=== PATIENT | female | born 1995 | race Caucasian/White ===

== ENCOUNTER 2019-09-17 10:48 | Emergency (ER) | payer BC, SELFPAY ==
[2019-09-17] VITALS (7 sets, daily range): BP systolic 92–127; BP diastolic 61–92; PULSE 99–150; RESP 20; TEMP 36.4–36.8; O2SAT 98–100
--- NOTE | ~2019-09-17 | XR_ITS ---
EXAMINATION: XR chest 1V portable DATE: 09/17/2019 11:06 INDICATION: Syncope. Hypotension. TECHNIQUE: frontal view of the chest was obtained. COMPARISON: None FINDINGS: The lungs are clear with no focal airspace opacities, pulmonary edema, pleural effusion or pneumothor ax. The cardiomediastinal silhouette is normal. Visualized bones and soft tissues are unremarkable. IMPRESSION: 1. No acute cardiopulmonary disease. Reviewed, dictated and finalized at location A. H MACHINE OPERATOR
--- NOTE | 2019-09-17 10:57 | ECG_ITS ---
Measurements Intervals [place] Rate: 139 P: 56 RI: 144 QRS: 89 QRSD: 87 T: 36 QT: 286 QTc: 436 Interpretive Statements SINUS TACHYCARDIA BORDERLINE ST ABNORMALITY- INFERIOR LEADS BASELINE ARTIFACT- I, II, III, AVR, V1, V3 ABNORMAL ECG Electronically Signed On 09-17-2019 12:46:11 SENIOR EXECUTIVE ASSISTANT by Ramirez Wyatt D.O.
[2019-09-17 11:06] LABS: Basophils Absolute Auto 0.1 K/mm3 (0.0-0.1); Basophils Percent Auto 0.3 % (0.2-1.2); Eosinophils Absolute Auto 0.2 K/mm3 (0-0.3); Eosinophils Percent Auto 1.3 % (0-4.4); Hematocrit 37.6 % (37.0-47.0); Hemoglobin 12.3 g/dL (12.0-15.0); Immature Granulocyte Absolute 0.33 K/mm3 (0.00-0.031); Immature Granulocyte Percent A 2.2 % (0-0.5); Lymphocytes Absolute Auto 3.25 K/mm3 (0.9-3.2); Lymphocytes Percent Auto 21.2 % (18.3-44.2); Mean Corpuscular HGB Conc 32.7 g/dl (32-36); Mean Corpuscular Hemoglobin 28.5 pg (26-34); Mean Corpuscular Volume 87.2 fl (80-100); Mean Platelet Volume 9.5 fl (7.4-10.4); Monocytes Absolute Auto 1.3 K/mm3 (0.1-0.6); Monocytes Percent Auto 8.5 % (2.6-8.5); Neutrophils Absolute Auto 10.2 K/mm3 (1.3-6.7); Neutrophils Percent Auto 66.5 % (45.5-73.1); Platelet Count Result 292 k/mm3 (150-375); Red Blood Count 4.31 M/mm3 (4.2-5.4); Red Cell Distribution Width 13.9 % (11.5-14.5); White Blood Count 15.3 K/mm3 (4.5-10.0)
[2019-09-17 11:16] LABS: INR 0.9; Prothrombin Time 12.1 Seconds (11.1-14.7)
[2019-09-17 11:17] LABS: Partial Thromboplastin Time 24.7 SECONDS (22.3-36.8)
[2019-09-17 11:21] LABS: Alanine Aminotransferase 15 U/L (4-35); Alkaline Phosphatase 108 U/L (38-126); Aspartate Amino Transferase 18 U/L (14-36); Bilirubin,Total 0.2 mg/dL (0.2-1.3); Blood Urea Nitrogen 4 mg/dL (7-17); Calcium 9.5 mg/dL (8.4-10.2); Carbon Dioxide 23 mmol/L (22-30); Chloride 101 mmol/L (98-107); Estimated CRCL calculation 161 ml/min; Estimated Glomerular Filt Rate > 60; Glucose 95 mg/dL (65-105); Potassium 3.4 mmol/L (3.4-5.0); Sodium 136 mmol/L (137-145)
[2019-09-17 11:32] LABS: Troponin I < 0.012 ng/mL (0.000-0.034)
--- NOTE | 2019-09-17 11:40 | ED.DIZZY ---
HPI - Dizziness General Chief Complaint: Syncope Stated Complaint: 26 weeks /dizzy Time Seen by Provider: 09/17/19 11:40 Source: patient Mode of arrival: ambulatory Limitations: no limitations History of Present Illness HPI Narrative: A 23 y/o female, who is a P:0 and 26 weeks , presents to the ED after a near syncopal episode this morning. Pt states that she was at [employer] when she suddenly felt lightheaded and everything suddenly went white and I thought I was going to faint. Pt had been standing for about 15 minutes when this occurred. Pt denies syncope stating that her symptoms alleviated after she sat down. This episode lasted approximately 1-2 minutes. Pt does not have a history of similar symptoms in the past. Pt currently asymptomatic in the ED bed. She reports resolved SOB, but denies vaginal bleeding, vaginal discharge, ABD pain, dysuria, urinary frequency, CP, smoking, alcohol use, and a PMHx of anxiety or panic attacks. Pt's OBGYN is Dr. Kincaid. Pertinent past history: other (26 weeks ) Onset (ago): hour(s) Timing: sudden onset Relieving factors: other (sitting down) Related Data Home Medications Medication Instructions Recorded Confirmed No Home Medications 09/17/19 09/17/19 Allergies Allergy/AdvReac Type Severity Reaction Status Date / Time No Known Allergies Allergy Verified 09/17/19 11:20 Review of Systems Review of Systems: All systems reviewed & are unremarkable except as noted in HPI and below Constitutional: Comments: Reports: lightheadedness (resolved) Cardiovascular: Cardiovascular: Denies chest pain Respiratory: Respiratory: Reports dyspnea (resolved) Gastrointestinal: Gastrointestinal: Denies abdominal pain Genitourinary: Genitourinary: Denies abnormal vaginal bleeding, Denies nocturia, Denies dysuria and Denies vaginal discharge Neurologic: Denies syncope PMFSH Past Medical History Medical History (Updated 09/17/19 @ 13:08 by Giuliano Edmond MD) 26 weeks gestation of Social History Social History (Updated 09/17/19 @ 11:54 by Maria Eugenia Gleason) Smoking status: Never smoker Alcohol intake: never Gender identity (if verbalized by the patient): Female Comments No PCP on file. OBGYN: Dr. Kincaid Exam Narrative: Exam Narrative: General appearance: Well-developed, well-nourished Skin: Normal color Head: Normocephalic, nontraumatic Eyes: Clear conjunctiva ENT: Oropharynx normal, ears normal, nose normal Neck: Supple, nontender Chest and respiratory: Airway patent, no respiratory distress, no accessory muscle use Heart: Regular rate/rhythm Abdomen: Soft, nontender, no organomegaly, quiet bowel sounds Vascular: Normal peripheral pulses, normal capillary refill. Musculoskeletal: Normal range of motion, nontender back Neurologic: Alert and oriented ?3, [employer] is normal as tested, no gross motor deficit Course Course Emergency Course: Improving Consultations Consultation #1: Discussed case with Dr. Kincaid and recommended cardiology consult. Date: 09/17/19 Time: 12:49 Consultation #2: Discussed case with Dr. Wyatt and he reports the EKG showing sinus tachycardia, not A-flutter. Date: 09/17/19 Time: 12:56 Vital Signs Vital signs: Vital Signs Temperature 36.4 C L 09/17/19 10:56 Pulse Rate 132 H 09/17/19 10:56 Respiratory Rate 20 09/17/19 10:56 Blood Pressure 92/61 L 09/17/19 10:56 Pulse Oximetry 99 09/17/19 10:56 Temperature 36.4 C L 09/17/19 10:56 Pulse Rate 117 H 09/17/19 12:31 Respiratory Rate 20 09/17/19 12:31 Blood Pressure 125/80 09/17/19 12:31 Pulse Oximetry 100 09/17/19 12:31 MDM - Dizziness MDM Narrative Medical
[2019-09-17 11:46] LABS: Add Urine Microscopic? NO; Appearance Urine Clear (Clear); Bilirubin Urine Negative (Negative); Blood Urine Negative (Negative); Color Urine Straw (Yellow); Glucose Urine UA Negative (Negative); Ketones Urine Negative (Negative); Leukocyte Esterase Ur Negative LEU/UL (Negative); Nitrate Urine Negative (Negative); Protein Urine Negative (Negative); Specific Grav Ur 1.009 (1.001-1.035); Urobilinogen Urine Negative mg/dL (<2.0)
[2019-09-17] MEDS: SODIUM CHLORIDE 0.9% IV 500 ML 999 ML IV CONT (12:01)
[2019-09-17 12:13] LABS: D Dimer 0.27 ug/mL (<0.48)
[2019-09-17 12:18] LABS: Amphetamine Screen Urine Negative (Negative); Barbiturate Screen Urine Negative (Negative); Benzodiazepines Screen Urine Negative (Negative); Cannabinoid Screen Urine Negative (Negative); Cocaine Screen Urine Negative (Negative); Methadone Screen Urine Negative (Negative); Opiate Screen Urine Negative (Negative); Phencyclidine Screen Urine Negative (Negative)
[2019-09-17] MEDS: SODIUM CHLORIDE 0.9% IV 1,000 ML 999 ML IV CONT (13:10)
== END 2019-09-17 14:25 | disposition home or self-care (01) ==
PROVIDERS: Emergency Medicine Emergency Medical Services; Emergency Provider Emergency Medicine
DX: O26.892 Other specified pregnancy related conditions, second trimester (principal); R55 Syncope and collapse; R00.0 Tachycardia, unspecified; Z3A.26 26 weeks gestation of pregnancy
CPT/HCPCS: 36415; 71045; 80053; 80307; 81003; 84443; 84484; 85025; 85380; 85610; 85730; 87804; 93005; 96360; 96361; 99284; J7030; J7040

== ENCOUNTER 2019-09-29 09:41 | Outpatient (RCR) | payer BC, SELFPAY ==
[2019-09-29 11:46] LABS: Hemoglobin 11.1 g/dL (12.0-15.0); Mean Corpuscular HGB Conc 32.6 g/dl (32-36); Mean Corpuscular Hemoglobin 28.6 pg (26-34); Mean Corpuscular Volume 87.6 fl (80-100); Mean Platelet Volume 9.9 fl (7.4-10.4); Platelet Count Result 275 k/mm3 (150-375); Red Blood Count 3.88 M/mm3 (4.2-5.4); White Blood Count 16.1 K/mm3 (4.5-10.0)
[2019-09-29 11:58] LABS: Glucose 1 Hour PP 50gm Dose 107 mg/dL
[2019-09-29 12:39] LABS: HIV 1/2 Ab P24 Ag Result Negative (Negative)
[2019-10-02] MEDS: RHO(D) IMMUNE GLOBULIN 300 MCG SYRINGE IM (11:23)
== END 2019-12-28 23:59 | disposition home or self-care (01) ==
LOC: ANHLAB 09:41
PROVIDERS: Visit Provider Obstetrics & Gynecology
DX: Z36.89 Encounter for other specified antenatal screening (principal); Z29.13 Encounter for prophylactic Rho(D) immune globulin; O36.0920 Maternal care for other rhesus isoimmunization, second trimester, not applicable or unspecified; Z3A.00 Weeks of gestation of pregnancy not specified
CPT/HCPCS: 36415; 82947; 85027; 86703; 86900; 86901; 90384; 96372; G0432; J2790

== ENCOUNTER 2019-12-05 05:17 | Inpatient (IN) | payer BC, SELFPAY ==
[2019-12-05] VITALS (137 sets, daily range): BP systolic 100–168; BP diastolic 43–141; PULSE 29–133; RESP 16; TEMP 36.3–36.7; O2SAT 83–100; BMI 39.0
--- NOTE | 2019-12-05 05:40 | LDADM ---
This patient, Brielle Haley, was admitted to Labor/Delivery/Recovery 102 on 12/05/19 at 05:17. Plans for labor, pain management and were discussed with patient. Patient/family oriented to hospital policies and general routines including ID bracelet, bed and alarms, visiting hours, pain management, procedures, bathroom and other care routines, personal items, smoking policy, room service/diet and guest tray routines, security routines, and visiting hours. Patient/Family are encouraged to report perceived risks to care and to ask questions if they do not understand what they are told or what they should do. See OBIX for further documentation.
[2019-12-05] MEDS: LACTATED RINGERS 1,000 ML 125 ML IV CONT ×4 (06:53→15:53)
[2019-12-05] MEDS: AMPICILLIN 2 GM/NS 100 ML 2 GM/100 ML BAG IVPB (06:53)
[2019-12-05 06:57] LABS: Basophils Absolute Auto 0.1 K/mm3 (0.0-0.1); Basophils Percent Auto 0.4 % (0.2-1.2); Eosinophils Absolute Auto 0.2 K/mm3 (0-0.3); Eosinophils Percent Auto 1.8 % (0-4.4); Hematocrit 38.3 % (37.0-47.0); Hemoglobin 12.9 g/dL (12.0-15.0); Immature Granulocyte Absolute 0.14 K/mm3 (0.00-0.031); Immature Granulocyte Percent A 1.2 % (0-0.5); Lymphocytes Percent Auto 33.6 % (18.3-44.2); Mean Corpuscular HGB Conc 33.7 g/dl (32-36); Mean Corpuscular Hemoglobin 29.4 pg (26-34); Mean Corpuscular Volume 87.2 fl (80-100); Mean Platelet Volume 11.2 fl (7.4-10.4); Monocytes Percent Auto 8.2 % (2.6-8.5); Neutrophils Absolute Auto 6.5 K/mm3 (1.3-6.7); Neutrophils Percent Auto 54.8 % (45.5-73.1); Platelet Count Result 229 k/mm3 (150-375); Red Blood Count 4.39 M/mm3 (4.2-5.4); Red Cell Distribution Width 15.2 % (11.5-14.5); White Blood Count 11.9 K/mm3 (4.5-10.0)
--- NOTE | 2019-12-05 07:43 | PM.IMHP ---
H&P: HPI History of Present Illness Chief complaint: Leaking Narrative: Brielle Haley is a 24yo @ 37.5 wks who presented to L&D with SROM @ 0415 today. She reports mild cramping as well. She was found to be 2cm dilated and ruptured, clear. She was also found to have elevated BP's (multiple mild range BP's and 1 severe range at 0545). She denies HERNANDEZ, CP, SOB, or vision changes. Review of Systems Constitutional: Constitutional: Denies body ache(s) and Denies chills Eyes: Eyes: Denies blurry vision Cardiovascular: Cardiovascular: Denies chest pain and Denies palpitations Respiratory: Respiratory: Denies cough and Denies dyspnea on exertion Gastrointestinal: Gastrointestinal: Denies nausea and Denies vomiting Genitourinary: Comments: + leakage of fluid, + cramping Neurologic: Denies headache(s) [facility] Past Medical History Medical History 26 weeks gestation of Family History Family History Other Unknown family medical history Social History Social History Smoking status: Never smoker Second hand tobacco smoke exposure: No Alcohol intake: never Substance use: never Gender identity (if verbalized by the patient): Female Spiritual care concerns: No Meds Home Medications and Allergies Home Medications Medication Instructions Recorded Confirmed Type PNV cmb#95-ferrous fumarate-FA 1 tablet PO DAILY 11/25/19 11/25/19 History [] Allergies Allergy/AdvReac Type Severity Reaction Status Date / Time No Known Allergies Allergy Verified 11/25/19 15:37 Vital Signs Vital Signs - 24 hr 12/05/19 05:33 12/05/19 05:45 12/05/19 06:09 Temperature 36.5 C Pulse Rate 110 H 89 Blood Pressure 143/98 H 160/114 H 12/05/19 06:12 12/05/19 06:15 12/05/19 06:17 Temperature Pulse Rate 89 87 87 Blood Pressure 119/86 133/111 H 128/79 12/05/19 06:30 12/05/19 06:36 12/05/19 06:38 Temperature Pulse Rate 86 103 H 73 Blood Pressure 133/103 H 140/101 H 148/96 H 12/05/19 06:45 12/05/19 06:51 12/05/19 07:00 Temperature 36.7 C Pulse Rate 85 92 Blood Pressure 150/94 H 145/95 H 12/05/19 07:01 12/05/19 07:15 12/05/19 07:30 Temperature Pulse Rate 91 77 77 Blood Pressure 124/95 H 128/87 142/94 H Exam Const: General: comfortable and no acute distress Resp: Effort & Inspection: normal respiratory effort Cardio: Rate: regular rate : Other: FHT's: 135/mod tri/ + accels/ no decels - category 1 TOCO: ctx's q 2-6min Cervix: 2/70/-3 @ 0530 Membranes: SROM, clear 0415 Neuro: Speech: normal speech Psych: Affect: normal affect H&P: Results Labs Labs: Short CBC 12/05/19 Range/Units 06:03 WBC 11.9 H (4.5-10.0) K/mm3 Hgb 12.9 (12.0-15.0) g/dL Hct 38.3 (37.0-47.0) % Plt Count 229 (150-375) k/mm3 Assessment and Plan Assessment and plan (1) SROM (spontaneous rupture of membranes): Status: Acute (2) Elevated blood pressure affecting , antepartum: Code(s): O16.9 - Unspecified maternal hypertension, unspecified trimester Status: Acute Additional Plan - Admit to labor and delivery for augmentation following SROM - Will allow pt to contract on her own for 4 hours; if no cervical change noted, will start pitocin augmentation per protocol - Ampicillin for GBS + - Will send PEC labs and continue to monitor BP's closely; currently asymptomatic and in the mild range (does not meet criteria for diagnosis yet as she has been normotensive prior to this). - heart tones category 1, continuous monitoring - Anesthesia consult PRN pain.
[2019-12-05] MEDS: OXYTOCIN 30 UNITS/NS 500 ML 30 UNITS/500 ML BAG 6 UNITS IV CONT (08:15)
[2019-12-05 08:55] LABS: Alanine Aminotransferase 14 U/L (4-35); Albumin Level 3.3 g/dL (3.5-5.1); Alkaline Phosphatase 214 U/L (38-126); Aspartate Amino Transferase 21 U/L (14-36); Bilirubin,Total 0.1 mg/dL (0.2-1.3); Blood Urea Nitrogen 9 mg/dL (7-17); Calcium 8.9 mg/dL (8.4-10.2); Carbon Dioxide 24 mmol/L (22-30); Chloride 104 mmol/L (98-107); Estimated CRCL calculation 122 ml/min; Estimated Glomerular Filt Rate > 60; Glucose 78 mg/dL (65-105); Potassium 4.3 mmol/L (3.4-5.0); Sodium 133 mmol/L (137-145)
[2019-12-05] MEDS: AMPICILLIN 1 GM/NS 50 ML 1 GM/50 ML BAG IVPB ×2 (11:08→15:54)
[2019-12-05] MEDS: SODIUM CHLORIDE 0.9% IV 300 ML 600 ML I-UTERINE (13:44)
[2019-12-05 14:06] LABS: Creatinine Urine 162.3 mg/dL
[2019-12-05 14:19] LABS: Total Protein Urine Random > 600 mg/dL
--- NOTE | 2019-12-05 16:52 | P.PCNOB_ITS ---
OB - Delivery Note Procedure Delivery date: 12/05/19 Procedure: Patient progressed to complete dilation and had a strong desire to push. She pushed with good maternal effort and delivered the head over intact perineum. A nuchal cord was palpated but loose, and easily delivered through. The shoulders and body delivered without complications. The was immediately placed skin to skin on mom. The infant had spontaneous cry and the mouth and nose were bulb suctioned. The cord was then clamped and cut. A segment of the cord was collected for cord gases. The remaining cord blood was then collected for typing. With Pitocin running and gentle traction on th e cord, the placenta delivered without complications. A bimanual exam was performed and the uterus found to be firm with minimal bleeding. The the cervix, vagina, and perineum were examined and a first-degree vaginal laceration was noted. The laceration was repaired using 2 0 Vicryl in the normal fashion and good hemostasis was noted. Sponge, lap, needle, and instrument counts were correct at the end of the procedure. Mom and baby were left bonding and skin to skin in the birthing suite in a stable condition. events: Premature Rupture of Membrane Intrapartal events: Mild Preeclampsia (Gestational hypertension) Delivery augmentation: pitocin Delivery monitor: external FHT and internal uterine Route of delivery: Laceration description: Vaginal - 1st Degree Delivery repair: vicryl Estimated blood loss (mL): 100 Anesthesia type: Epidural Disposition: floor [place] Baby Date of : 12/05/19 Time of : 16:25 Weeks of gestation at delivery: 37 Infant gender: Female Weight (pounds): 6 Weight (ounces): 0 presentation: vertex position: Right Occiput Anterior Placenta delivery description: Expressed cord vessel description: 3 Vessels and Nuchal Cord score one minute: 9 score five minutes: 9
[2019-12-05] MEDS: OXYTOCIN 30 UNITS/NS 500 ML 30 UNITS/500 ML BAG 125 UNITS IV CONT (17:00)
[2019-12-05] MEDS: BENZOCAINE 20% AER SPR (*SP) 56 GM CAN 1 SPRAY TOPICAL (18:15)
[2019-12-05] MEDS: WITCH HAZEL 40 PADS 1 PAD TOPICAL (18:15)
--- NOTE | 2019-12-05 18:46 | OBPPTRN ---
Patient transferred to post room #291 via wheelchair. Support person present. Oriented to unit, room, information board, rooming in, admission packet and security measures. Patient verbalizes understanding.
[2019-12-05] MEDS: NIFEdipine 30 MG TAB.ER.24 PO (20:59)
[2019-12-05] MEDS: ACETAMINOPHEN 325 MG TABLET 650 MG PO (21:07)
[2019-12-05] MEDS: CALCIUM CARBONATE (TUMS) 500 MG (200 MG ELEMENTAL) PO (23:15)
[2019-12-06] VITALS (7 sets, daily range): BP systolic 121–139; BP diastolic 83–102; PULSE 87–104; RESP 16–18; TEMP 36.6–37.2; O2SAT 97–99
[2019-12-06 05:24] LABS: Hematocrit 35.3 % (37.0-47.0); Hemoglobin 11.7 g/dL (12.0-15.0)
[2019-12-06] MEDS: MULTIVIT/MIN/PREN/FOL AC/IRON TABLET 1 TAB PO (08:40)
[2019-12-06] MEDS: DOCUSATE SODIUM 100 MG CAPSULE PO (08:40)
[2019-12-06] MEDS: LANOLIN (LANSINOH) 7.5 GM CREAM 1 APPLIC TOPICAL (08:41)
[2019-12-06 09:29] LABS: Rapid Plasma Reagin Non-Reactive (NonReactive)
--- NOTE | 2019-12-06 12:35 | PC.NURSE ---
Mother called out for assist feeding. Mother reports using the nipple shield. has been sleepy and has bursts of sporadic suckling. Mother will supplement after due to ineffective feeding. Mother is pumping after using the nipple shield. first child with complications of latch and low milk supply. Discussed nipple shield precautions and possible complications. Instructions given on application and cleaning of shield.Patient able to return demonstration on proper application of shield. Discussed the need for regular pumping if infant continues to nurse with the shield. Patient verbalizes understanding. Reviewed feeding cues, frequencies, duration of feedings, feeding elimination flow sheet, and signs of adequate intake. Demonstrated stimulation techniques to wake for feeding. Assisted with infant to breast. Reviewed positioning/alignment in football, holding breast in C hold and guided asymmetrical latch on. Discussed rational for each. Infant was able to latch correctly, infant made no effort to suckle. Suggested small amounts of formula to shield and mouth to begin feeding. responded with eager nursing, with steady draws and occasional swallowing noted. Reviewed signs of a correct latch, effective nursing and suck swallow ratio. was able to maintain latch without discomfort to mother. Nipple care reviewed. Suggested mother continue to stimulate during feeding to increase intake and assist infant with maintaining deep latch. Mother will continue to offer supplement after feedings until is more consistent with feeding. Instructed mother to call out for RN assistance if she is unable to latch infant for feeding or she has discomfort with nursing. Instructed feeding should be initiated three hours from start of last feeding or if feeding cues are noted before. Mother voiced understanding of information shared.
--- NOTE | 2019-12-06 12:54 | PM.OBPNVD ---
OB - PN: Subj Subjective Date/time seen: 12/06/19 12:54 Brielle is a 24yo now P1001 s/p @ 37.5wks, PPD#1 complicated by PEC w/o SF, RH negative, varicella non-immune, GBS positive Today, Brielle reports doing great; breast feeding has been difficult. She had persistently elevated blood pressures overnight and was started on antihypertensives; her BP's have been normal today. She denies any symptoms of PEC. She reports her pain is well controlled and she is having very light bleeding. She has been up walking and denies symptoms of anemia. She is tolerating regular diet w/o issues. She is voiding and passing flatus. No other complaints. OB - PN: Obj Data Labs CBC & Chem 7: 12/06/19 04:28 12/05/19 08:15 Labs: Laboratory Results - last 24 hr 12/05/19 12/05/19 12/06/19 06:03 13:49 04:28 Hgb 11.7 L Hct 35.3 L U Random Total Protein > 600 Urine Creatinine 162.3 RPR Non-reactive Blood Type Antibody Screen Screen Baby's Blood Type Baby's LINA Doses of RhIg Required 12/06/19 04:28 Hgb Hct U Random Total Protein Urine Creatinine RPR Blood Type B Negative Antibody Screen Negative Screen Negative Baby's Blood Type Ab pos Baby's LINA Negative Doses of RhIg Required 1 OB - PN A/P Assessment and Plan (1) Normal vaginal delivery: Code(s): O80 - Encounter for full-term uncomplicated delivery Status: Acute (2) Preeclampsia in period: Code(s): O14.95 - Unspecified pre-eclampsia, complicating the puerperium Status: Acute Assessment and Plan: without severe features; based on mild range BP's and + P/C ratio (3) Rh negative, delivered, current hospitalization: Code(s): O26.899 - Other specified related conditions, unspecified trimester; Z67.91 - Unspecified blood type, Rh negative Status: Acute Plan day: 1 Comments: - Meeting all milestones - Continue breast feeding; /nursing helping - BP's in normal range now; continue Nifedipine 30mg PO daily, pt asymptomatic-- will need 1wk BP f/u outpatient - Labs and exam normal - Rh negative; administer rhogam pending blood type - Will likely d/c home tomorrow Time Spent With Patient Time: Total time spent is greater than 50% in coordination of care (as documented) at patient's floor/unit and/or counseling patient: Review of Systems Constitutional: Constitutional: Denies body ache(s) and Denies chills Cardiovascular: Cardiovascular: Denies rapid heart rate Respiratory: Respiratory: Denies cough and Denies dyspnea Gastrointestinal: Gastrointestinal: Denies abdominal pain, Denies nausea and Denies vomiting Genitourinary: Genitourinary: Denies pelvic pain Neurologic: Denies headache(s) Exam Const: General: comfortable, no acute distress, alert and awake Resp: Effort & Inspection: normal respiratory effort Auscultation: clear to auscultation bilaterally Cardio: Rate: regular rate GI: Auscultation: normal bowel sounds Other: soft, non-distended, non-tender : Other: fundus firm below umbilicus Psych: Appearance: grossly normal Affect: normal affect Attitude: cooperative
[2019-12-06] MEDS: NIFEdipine 30 MG TAB.ER.24 PO (13:00)
[2019-12-06] MEDS: IBUPROFEN 600 MG TABLET PO ×2 (13:26→22:45)
--- NOTE | 2019-12-06 15:22 | PC.NURSE ---
1300 Pt prefers to take her BP medication around noon each day. Dr. merino, and agreed. BP med given at this time.
[2019-12-06] MEDS: RHO(D) IMMUNE GLOBULIN 300 MCG SYRINGE IM (17:59)
[2019-12-07 04:00] VITALS: BP 136/93; PULSE 90
[2019-12-07 07:45] VITALS: BP 147/104; PULSE 95; RESP 16; TEMP 37.7; O2SAT 98
[2019-12-07] MEDS: MULTIVIT/MIN/PREN/FOL AC/IRON TABLET 1 TAB PO (08:26)
[2019-12-07] MEDS: NIFEdipine 30 MG TAB.ER.24 PO ×2 (10:51→12:42)
--- NOTE | 2019-12-07 11:44 | PC.NURSE ---
Patient viewed the discharge video Mother & Baby Care, The First Two Weeks . Patient was given the opportunity and encouraged to ask questions. Patient verbalized understanding of information shared and has been given the mother/baby guide for home reference.
[2019-12-07 12:20] VITALS: BP 156/107; PULSE 99
[2019-12-07 14:30] VITALS: BP 139/98; PULSE 102; RESP 18; TEMP 36.8; O2SAT 99
[2019-12-08 08:41] VITALS: BP 145/96; PULSE 90; RESP 20; TEMP 36.9
--- NOTE | 2019-12-20 08:19 | PM.OBDSVD ---
DS: Admitting Diagnosis Admitting Diagnosis Admitting Diagnosis: Encounter for supervision of normal , unspecified, third trimester DS: Discharge Diagnosis Discharge Diagnosis (1) Normal vaginal delivery: Code(s): O80 - Encounter for full-term uncomplicated delivery Status: Acute (2) Preeclampsia in period: Code(s): O14.95 - Unspecified pre-eclampsia, complicating the puerperium Status: Acute (3) Rh negative, delivered, current hospitalization: Code(s): O26.899 - Other specified related conditions, unspecified trimester; Z67.91 - Unspecified blood type, Rh negative Status: Acute OB - DS: Summary OB Procedures : None OB Procedures Intrapartum: Spontaneous Vag Delivery OB Procedures: : RHo (D) lg and Other (hypertensive medications) Peripartum Data Delivery Method: Natural Vaginal Laceration description: Vaginal - 1st Degree complications: other (pre-eclampsia) [place] 1: Gender: Female Disposition of : home Status at Discharge Functional status at discharge: independent ambulation Overall status at discharge: patient is back to baseline Time Spent with Patient Time attestation: Total time spent providing and/or coordinating discharge services: Exam Const: General: comfortable and no acute distress Resp: Effort & Inspection: normal respiratory effort Auscultation: clear to auscultation bilaterally Cardio: Rate: regular rate GI: GI Palp: Yes Soft to palpation : Other: fundus firm below the umbilicus Psych: Appearance: grossly normal Attitude: cooperative Discharge Plan Discharge Attending physician on discharge: Tsering Kincaid Discharging Clinician: Tsering Kincaid Anticipated Discharge Date/Time: 12/07/19 16:00 Patient Disposition: Home, Self-Care Activity: pelvic rest Diet: regular Discharge Instructions: Education: Mom and Baby Guide and Preeclampsia Handout Given to: Mother Follow-Up: Call your delivering provider's office for an appointment to be seen in: 1 Week Mom and baby should come to the [facility] for the follow-up appointment. Appointment Date/Time: December 08, 2019 at 8:00 am What to expect at your follow-up visit: Blood Pressure Check, Physical Assessment Call [phone] if you are unable to keep your appointment time. BREAST CARE: 1. Wear a snug supportive bra. 2. For engorgement discomfort: Breast Feeding: A. Apply warm moist washcloths B. Express milk as needed to relieve engorgement C. Wear loose clothing 3. For sore nipples: A. Identify correct latch-on B. Apply warm moist washcloths before and after nursing C. Air dry nipples after nursing D. May apply Lansinoh cream to nipples EPISIOTOMY/PERINEAL CARE: 1. Until bleeding stops, use your maykel bottle after urinating 2. Change your pad frequently throughout the day 3. You may take sitz baths several times a day (fill your bathtub with warm water and soak for 20 minutes.) Do NOT bathe in the water 4. No tub baths until seen by your physician - You may shower ACTIVITY: 1. Rest as much as possible. 2. Do not exercise or lift anything heavier than your baby (such as laundry or other children.) 3. Avoid stairs or driving as much as possible. 4. Do not put anything into the vagina. No douching, tampons, or sexual activity until seen by physician. NOTIFY PHYSICIAN IF YOU HAVE ANY QUESTIONS OR IF ANY OF THE FOLLOWING SYMPTOMS OCCUR: 1. If your episiotomy/perineum becomes red, swollen, or more painful than what you have experienced in the hospital. 2. If your vaginal bleeding becomes foul smelling. 3. If your vaginal bleeding becomes more heavy than a period or if your bleeding changes from pink to bright red. However, you may pass an occasional walnut-sized clot once or twice for the first wee
== END 2019-12-07 16:10 | disposition home or self-care (01) | DRG 806 ==
LOC: ANHLDR 05:52 → ANHOB2 18:51
PROVIDERS: Admitting Provider Obstetrics & Gynecology; Visit Provider Obstetrics & Gynecology
DX: O42.92 Full-term premature rupture of membranes, unspecified as to length of time between rupture and onset of labor (principal); O36.0930 Maternal care for other rhesus isoimmunization, third trimester, not applicable or unspecified; Z37.0 Single live birth; Z3A.37 37 weeks gestation of pregnancy; O14.04 Mild to moderate pre-eclampsia, complicating childbirth; O70.0 First degree perineal laceration during delivery; O13.4 Gestational [pregnancy-induced] hypertension without significant proteinuria, complicating childbirth; O69.81X0 Labor and delivery complicated by cord around neck, without compression, not applicable or unspecified; O99.824 Streptococcus B carrier state complicating childbirth; O36.8330 Maternal care for abnormalities of the fetal heart rate or rhythm, third trimester, not applicable or unspecified
CPT/HCPCS: 36415; 80053; 82570; 84156; 85014; 85018; 85025; 85461; 86592; 86850; 86900; 86901; 90384; A9270; J0290; J2590; J2790; J2795; J3010; J7030; J7120

== ENCOUNTER 2021-11-10 18:56 | Emergency (ER) | payer BC, SELFPAY ==
--- NOTE | 2021-11-10 18:59 | ED.LOWEXIN ---
HPI - Extremity Injury (Lower) General Chief Complaint: Extremity Injury, Lower Stated Complaint: RIght knee pain Time Seen by Provider: 11/10/21 18:59 Source: patient and RN notes reviewed History of Present Illness HPI Narrative: Patient is a 26-year-old female presents the urgent care with her spouse with complaints of right knee pain. Patient states that 6 days ago she was running and the pain has been ever since last Wednesday. Patient states that one point on Wednesday it popped and felt much better . However she woke up this morning with increased swelling and pain. Patient states pain exacerbates on flexion and weightbearing. Patient has been taking ibuprofen. Also has been wearing a knee sleeve. Denies of any fall or injury. Denies any past injury to the knee. No other acute complaints. No acute distress noted. Patient aware of the plan of care. Some parts of this dictation were generated by voice recognition software and may contain typographical and/or grammatical inaccuracies. Related Data Allergies Allergy/AdvReac Type Severity Reaction Status Date / Time No Known Allergies Allergy Verified 11/10/21 19:12 Review of Systems Review of Systems: CONSTITUTIONAL: Denies fever, chills, or sweats. EYES: Denies visual changes, redness, or discharge. ENT: Denies rhinorrhea, congestion, sore throat, or otalgia. CARDIOVASCULAR: Denies chest pain, palpitations, or edema. RESPIRATORY: Denies cough or dyspnea. GASTROINTESTINAL: Denies abdominal pain, nausea, vomiting, or diarrhea. GENITOURINARY: Denies dysuria or hematuria. SKIN: Denies rash or itching. MUSCULOSKELETAL: Reports of right knee pain and swelling NEUROLOGIC: Denies headache, numbness, or weakness. All other systems reviewed are negative, except as documented in HPI. [facility] Past Medical History Medical History (Updated 11/10/21 @ 19:18 by MERON Moyer) 26 weeks gestation of Family History Family History (System 02/07/20 @ 13:11 by Merissa Lee) Other Unknown family medical history Social History Social History (System 02/07/20 @ 13:11 by Merissa Lee) Smoking status: Never smoker Second hand tobacco smoke exposure: No Alcohol intake: never Substance use: never Gender identity (if verbalized by the patient): Female Spiritual care concerns: No Comments At the time of my signature, I reviewed and agree with the nursing past medical, surgical, social, and family history. There is no relevant family history pertinent to the patient complaint. Exam Narrative: GENERAL: This is a well-nourished, well-developed patient, in no apparent distress. HEAD: normocephalic, atraumatic. EYES: PERRL. Sclera clear/white. Vision is grossly intact. EARS: External ears normal NOSE: External nose normal with no obvious nasal discharge, nares without redness, no rhinorrhea. THROAT: Mucous membranes moist, posterior pharynx clear. NECK: Neck supple. RESPIRATORY: Clear to auscultation. Breath sounds equal bilaterally. No wheezes, rales, or rhonchi. SKIN: warm, intact with no suspicious lesions or rash, good texture and turgor. NEURO: awake, alert, and oriented to person, place and time. There were no obvious focal neurologic abnormalities. EXTREMITIES: Mild anterior to lateral effusion with mild tenderness. Negative anterior drawer test. Pain exacerbated with weightbearing and flexion. Positive strong right pedal pulse with capillary refill less than 2 seconds. No obvious deformity. Course Course Level of Care: Express Care Visit Vital Signs Vital signs: Vital Signs Temperature 98.8 F 11/10/21 19:00 Pulse Rate 97 11/10/21 19:00 Respiratory Rate 14 11/10/21 19:00 Blood Pressure 137/85 11/10/21 19:00 Pulse Oximetry 100 11/10/21 19:00 Temperature 98.8 F 11/10/21 19:00 Pulse Rate 97 11/10/21 19:00 Respiratory Rate 14 11/10/21 19:00 Blood Pressure 137/85 11/10/21 19:00 Pulse Ox
[2021-11-10 19:00] VITALS: BP 137/85; PULSE 97; RESP 14; TEMP 37.1; O2SAT 100
== END 2021-11-10 19:20 | disposition home or self-care (01) ==
PROVIDERS: Emergency Provider Nurse Practitioner Family
DX: M25.561 Pain in right knee (principal)
CPT/HCPCS: 99213; G0463